=== PATIENT | female | born 1945 | race Caucasian/White ===

== ENCOUNTER → 2017-03-27 | Outpatient (CLI) | payer MEDICARE ==
--- NOTE | 2017-03-27 15:47 | KCIC ---
DATE: 03/27/2017 EXAM: MAMMO REAL SCREENING BILATERAL HISTORY: Routine screening. History of benign left breast biopsy. COMPARISON: Previous study from 2016 and 2015. This study was interpreted with the benefit of Computerized Aided Detection (CAD). FINDINGS: Breast Density: HETERO The breast parenchyma Is heterogeneously dense, which could reduce sensitivity of mammography. Breast parenchyma level C. The skin and nipples are within normal limits. Benign bilateral scattered calcifications. There is a new focus of calcification in the right outer breast approximately at 9:00 position with branching morphology approximately 7 cm from nipple on cc view. There is a 1.4 x 1.4 cm round well-circumscribed mass in the left retroareolar region. Left breast biopsy clip noted. IMPRESSION: New right breast calcifications and left retroareolar round lesion. The right breast which effaces are most likely secretory calcifications which are benign. However, meditation views recommended for better evaluation morphology. The left retroareolar mass most likely simple cyst. However, confirmation recommended with ultrasound. BI-RADS CATEGORY: 0 INCOMPLETE: NEED ADDITIONAL IMAGING EVAULATION AND/OR PRIOR MAMMOGRAMS FOR COMPARISON RECOMMENDED FOLLOW-UP: ADD ADDITIONAL IMAGING. Magnification views of the right breast calcifications and ultrasound of the left retroareolar region. . PQRS compliance statement: Patient information was entered into a reminder system with a target due date for the next mammogram. Mammography is a sensitive method for finding small breast cancers, but it does not detect them all and is not a substitute for careful clinical examination. A negative mammogram does not negate a clinically suspicious finding and should not result in delay in biopsying a clinically suspicious abnormality. "Our facility is accredited by the [employer] Mammography Program."
== END | disposition home or self-care (01) ==
LOC: KCIC MAMMO 12:09
PROVIDERS: ATTEND Internal Medicine
DX: Z12.31 Encounter for screening mammogram for malignant neoplasm of breast (principal)
CPT/HCPCS: 77063; G0202; 77067

== ENCOUNTER → 2017-03-28 | Outpatient (CLI) | payer MEDICARE ==
--- NOTE | 2017-03-28 15:49 | KCIC ---
Ultrasound left breast Indication: Abnormal left breast mammogram Technique: Grayscale and color Doppler ultrasound images of the left breast. Comparison: Screening mammogram from 03/27/2017 Findings: There is a 1.3 x 1.3 x 1.0 cm anechoic round well-circumscribed cystic lesion with posterior acoustic enhancement and no internal vascularity in the retroareolar region at 3:00 position that corresponds to the abnormality seen on the most recent screening mammogram from 03/27/2017. No other cystic or solid lesion seen in the interrogated left breast. Impression: The previously seen left breast retroareolar abnormality is consistent with simple cyst. BI-RADS 2: Benign finding.
--- NOTE | 2017-03-31 20:05 | KCIC ---
DATE: 03/28/2017 EXAM: DIGITAL DIAGNOSTIC RT HISTORY: Callback for abnormality seen in the right breast screening mammogram. COMPARISON: Screening mammogram from 03/27/2017. This study was interpreted with the benefit of Computerized Aided Detection (CAD ). CC and MLO Magnification views of the right upper outer breast. FINDINGS: Breast Density: HETERO The breast parenchyma Is heterogeneously dense, which could reduce sensitivity of mammography. Breast parenchyma level C. CC and MLO magnification views of the right posterior upper outer breast demonstrates a linear branching calcification pattern. There are benign scattered calcifications distributed throughout the breast. IMPRESSION: Linear branching pattern of calcification, new from previous study in the posterior upper outer breast. This is a suspicious finding. BI-RADS CATEGORY: 4 SUSPICIOUS ABNORMALITY-BIOPSY SHOULD BE CONSIDERED RECOMMENDED FOLLOW-UP: PQRS compliance statement: Patient information was entered into a reminder system with a target due date for the next mammogram. Mammography is a sensitive method for finding small breast cancers, but it does not detect them all and is not a substitute for careful clinical examination. A negative mammogram does not negate a clinically suspicious finding and should not result in delay in biopsying a clinically suspicious abnormality. "Our facility is accredited by the [employer] Mammography Program." MTDD
== END | disposition home or self-care (01) ==
LOC: KCIC MAMMO 14:13
PROVIDERS: ATTEND Internal Medicine
DX: R92.8 Other abnormal and inconclusive findings on diagnostic imaging of breast (principal)
CPT/HCPCS: 76641; G0206; 77065

== ENCOUNTER → 2017-04-03 | Outpatient (CLI) | payer MEDICARE ==
[~2017-04-03] MED LIST: LIDOCAINE 1% / SOD BICARB 8.4% 20 ML VIAL. IJ ONE; LIDOCAINE 2%/EPI 1:100,000 20 ML VIAL. IJ ONE
--- NOTE | 2017-04-08 17:25 | PATHOLOGY ---
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 See comment. (JPM:rlm; 04/05/2017) COMMENT: Sections of the right breast needle biopsy reveal several foci showing an atypical ductal epithelial proliferation. The atypical ductal epithelial proliferation has a papillary and focal cribriform architecture. The atypical cells appear somewhat uniform and possess enlarged, round to ovoid nuclei containing small nucleoli. There is necrotic debris within the ductal lumens. There are associated fine and coarse calcifications. The largest of these foci measure just under 3 mm in greatest dimension. There is no evidence of invasive carcinoma. A limited panel of immunoperoxidase stains is obtained and yields the following results: ER (A1) Atypical epithelial proliferation diffusely positive CK5/6 (A1) Atypical epithelial proliferation negative The morphologic and immunophenotypic findings are supportive of the diagnosis of atypical ductal hyperplasia bordering on low grade ductal carcinoma in situ. Recommend excision for further classification of the lesion. The case is also examined by Dr. Kellie Moulton and Dr. Neda Diaz, who concur with the diagnosis. (JPM:db; 04/08/2017) PROCEDURE REPORT (Order Date: 04/04/2017 11:23) COMMENT: Quantitative image analysis was performed on block A2. Please see next page for scanned image of results. (AMJ 04/08/2017) PATHOLOGIST: De Banda M.D. REPORT ELECTRONICALLY SIGNED BY: De Banda M.D. DATE/TIME: 04/09/2017 09:39 REPORT ELECTRONICALLY SIGNED BY: Artur Baird M.D. DATE/TIME: 04/08/2017 17:25 * * * * * * * * GROSS PATHOLOGY: Received in formalin labeled "Sue Hobson, right breast calcifications," are multiple needle cores of yellow-echeverria fibrofatty tissue measuring 4.1 x 2.0 x 0.9 cm in aggregate dimensions. The tissue is submitted in its entirety in cassette A1 through A3. The cold ischemic time is 8 minutes. The total formalin fixation time is 6 hours and 54 minutes. (TSD; 04/03/2017) INITIAL CPT CODE(S): A; 28153, 05679(2), 95816, 52773 Professional services [place] [address] Technical services performed by [facility] at [address] [place] [address], [address], [place] [address]. SPECIMEN(S) RECEIVED: A.Right breast biopsy CLINICAL HISTORY: Calcifications PATIENT: SUE HOBSON /AGE: 1103/13/1945 (Age: 72) PATIENT #: [id number] ALT CASE #: SPECIMEN COLLECTION DATE: 04/03/2017 SPECIMEN RECEIVED DATE: 04/03/2017 [facility] - [id number] [place] [address] - PHONE: [phone] * * * END OF REPORT * * *
--- NOTE | 2017-04-09 10:23 | RAD ---
Stereotactic right breast biopsy, 04/03/2017: History: Suspicious microcalcifications Previous right mammograms demonstrated a cluster of suspicious microcalcifications in the lateral aspect of the right breast. Under local anesthesia, aseptic conditions and mammographic guidance the [employer] biopsy instrument was passed into this region via a lateral approach. Multiple 9-gauge vacuum-assisted core samples were obtained. Specimen mammography demonstrated multiple targeted microcalcifications in the specimens. A biopsy marker was deposited at the biopsy site. The biopsy instrument was then removed and hemostasis obtained. Two-view postprocedural digital mammograms were then obtained on a separate mammographic unit for documentation of the biopsy clip location. The majority of the targeted microcalcifications have been removed. The patient tolerated the procedure well and left the department in good condition. 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 Excisional biopsy is recommended. This is a concordant finding. Note: The findings were called to personnel in Dr. Oconnor's office at 10:19 AM on 04/09/2017.
== END | disposition home or self-care (01) ==
LOC: MAMMO 08:52
PROVIDERS: ATTEND Internal Medicine
DX: R92.8 Other abnormal and inconclusive findings on diagnostic imaging of breast (principal)
CPT/HCPCS: 19085; 77022; C1713; G0206; J3490; 77065

== ENCOUNTER 2017-05-01 09:24 | Day surgery (SDC) | payer MEDICARE ==
[2017-05-01] MEDS: LIDOCAINE WITH 8.4% SOD BICARB 3 ML DISP.SYRIN. IJ (07:30)
[~2017-05-01 09:24] MED LIST changes: +HYDROmorphone 2 MG/ML VIAL IV; +IV RINGERS,LACTATED 1000ML 1,000 ML IV; -LIDOCAINE 1% / SOD BICARB 8.4% 20 ML VIAL. IJ ONE; +LIDOCAINE 1% PF 2 ML VIAL. ID; -LIDOCAINE 2%/EPI 1:100,000 20 ML VIAL. IJ ONE; +MORPHINE SULFATE 2 MG/ML DISP.SYRIN. IV; +ONDANSETRON PF 4 MG/2 ML VIAL. IV; +PROCHLORPERAZINE 10 MG/2 ML VIAL. IV; +ceFAZolin 2GM PREMIX 2 GM/50 ML BAG IV; +fentaNYL PF VIAL 100 MCG/2 ML VIAL IV
[2017-05-01] MEDS ORDERED: LIDOCAINE 2% PF Vial for OR 5 ML VIAL. (10:17)
[2017-05-01] MEDS ORDERED: PROPOFOL 20 ML IV (10:17)
[2017-05-01] MEDS: BUPIVAC MPF-EPI 0.5%-1:200000 30 ML VIAL. INJ (12:15)
[2017-05-01] MEDS ORDERED: DEXAMETHASONE SOD PHOS 20 MG/5 ML VIAL. (12:21)
[2017-05-01] MEDS ORDERED: fentaNYL PF VIAL 100 MCG/2 ML VIAL (12:21)
[2017-05-01] MEDS ORDERED: ONDANSETRON PF 4 MG/2 ML VIAL. (12:21)
[2017-05-01] MEDS ORDERED: SEVOFLURANE 31 TO 60 MINUTES. IH (12:32)
[2017-05-01] MEDS: fentaNYL PF VIAL 100 MCG/2 ML VIAL IV (13:17)
[2017-05-01] MEDS ORDERED: HYDROcodone/APAP 5/325MG 1 TAB TABLET (13:27)
[2017-05-01] MEDS: HYDROcodone/APAP 5/325MG 1 TAB TABLET PO (13:29)
== END 2017-05-01 14:19 | disposition home or self-care (01) ==
LOC: SURG 09:24
DX: N60.91 Unspecified benign mammary dysplasia of right breast (principal); Z86.69 Personal history of other diseases of the nervous system and sense organs; Z87.39 Personal history of other diseases of the musculoskeletal system and connective tissue; Z72.89 Other problems related to lifestyle; Z88.8 Allergy status to other drugs, medicaments and biological substances; Z91.048 Other nonmedicinal substance allergy status
CPT/HCPCS: 19081; 19281; 76098; 88307; C1769; J0690; J1100; J2405; J2704; J3010; J3490

== ENCOUNTER → 2017-11-01 | Outpatient (CLI) | payer MEDICARE | END | disposition home or self-care (01) | LOC: KCIC MAMMO 08:43 | DX: R92.8 Other abnormal and inconclusive findings on diagnostic imaging of breast (principal) | CPT/HCPCS: 77065 ==

== ENCOUNTER → 2018-03-24 | Outpatient (CLI) | payer MEDICARE ==
[2017-05-01 13:55] VITALS: BP 130/76
[~2018-03-24] MED LIST changes: +ASPI81TA50 PO; +CALC600T4 PO; +CHOL100013 PO; +ESTR0.5T PO; +FISH1CAP PO; +HYDR-2761 PO; -HYDROmorphone 2 MG/ML VIAL IV; -IV RINGERS,LACTATED 1000ML 1,000 ML IV; -LIDOCAINE 1% PF 2 ML VIAL. ID; +MAGN400C PO; -MORPHINE SULFATE 2 MG/ML DISP.SYRIN. IV; -ONDANSETRON PF 4 MG/2 ML VIAL. IV; -PROCHLORPERAZINE 10 MG/2 ML VIAL. IV; +SPIR25TA5 PO; -ceFAZolin 2GM PREMIX 2 GM/50 ML BAG IV; -fentaNYL PF VIAL 100 MCG/2 ML VIAL IV
--- NOTE | 2018-03-24 13:26 | KCIC ---
DATE: 03/24/2018 EXAM: MAMMO REAL TIMOTHYG DANIELAT HISTORY: Follow-up benign biopsy COMPARISON: 11/01/2017, 03/18/2016 This study was interpreted with the benefit of Computerized Aided Detection (CAD). Breast Density: HETERO The breast parenchyma is heterogenously dense, which could reduce sensitivity of mammography. Breast parenchyma level C. FINDINGS: 2-D and 3-D tomosynthesis imaging was performed in CC and MLO projections. There is an old biopsy clip in the lateral left breast. No new or enlarging breast densities are seen. There is slight architectural distortion laterally in the right breast on a postsurgical basis. Numerous microcalcifications are again noted in both breasts. No suspicious microcalcifications have developed. IMPRESSION: Stable mammograms without evidence of malignancy. Correlation with the excisional biopsy results is suggested in determining the best timing for mammographic surveillance. BI-RADS CATEGORY: 2 BENIGN FINDING(S) RECOMMENDED FOLLOW-UP: 12M 12 MONTH FOLLOW-UP PQRS compliance statement: Patient information was entered into a reminder system with a target due date for the next mammogram. Mammography is a sensitive method for finding small breast cancers, but it does not detect them all and is not a substitute for careful clinical examination. A negative mammogram does not negate a clinically suspicious finding and should not result in delay in biopsying a clinically suspicious abnormality. "Our facility is accredited by the [employer] Mammography Program."
== END | disposition home or self-care (01) ==
LOC: KCIC MAMMO 12:19
PROVIDERS: ATTEND Surgery
DX: R92.8 Other abnormal and inconclusive findings on diagnostic imaging of breast (principal)
CPT/HCPCS: 77066; G0279; 77062

== ENCOUNTER → 2019-03-25 | Outpatient (CLI) | payer MEDICARE ==
[2017-05-01 13:55] VITALS: BP 130/76
--- NOTE | 2019-03-25 13:14 | KCIC ---
EXAM: Bilateral digital screening mammogram with tomosynthesis. HISTORY: 74-year-old female presents for screening mammography. TECHNIQUE: Full-field digital craniocaudal and mediolateral oblique 2D and 3D tomosynthesis images of both breasts are obtained for evaluation. Computer aided detection with AteoD software version 9.3 was applied. COMPARISON: 11/01/2017 and 04/03/2017 BREAST PARENCHYMAL DENSITY: Level C - Heterogeneously dense. FINDINGS: There is no new suspicious mass, microcalcification or region of architectural distortion. There are extensive benign-appearing microcalcifications throughout the right greater than left breast. There are stable postoperative changes within the right breast. There is a biopsy clip within the left breast. IMPRESSION: BI-RADS Category 2: Benign finding(s). RECOMMENDATION: Annual mammography is recommended. If your mammogram demonstrates that you have dense breast tissue, which could hide abnormalities, and if you have other risk factors for breast cancer that have been identified, you might benefit from supplemental screening tests that may be suggested by your ordering physician. Dense breast tissue, in and of itself, is a relatively common condition. This information is not provided to cause undue concern, but rather to raise your awareness and to promote discussion with your physician regarding the presence of other risk factors, in addition to dense breast tissue. A report of your mammography results will be sent to you and your physician. You should contact your physician if you have any questions or concerns regarding this report. Mammography is a sensitive method for finding small breast cancers, but it does not detect them all and is not a substitute for careful clinical examination. A negative mammogram does not negate a clinically suspicious finding and should not result in delay in biopsying a clinically suspicious abnormality. PQRS compliance statement - Patient information was entered into a reminder system with a target due date for the next mammogram. "Our facility is accredited by the [employer] Mammography Program." Electronically signed by: Laquita Vizcarra MD (03/25/2019 1:11 PM) [id number]
== END | disposition home or self-care (01) ==
LOC: KCIC MAMMO 12:12
PROVIDERS: ATTEND Family Medicine
DX: Z12.31 Encounter for screening mammogram for malignant neoplasm of breast (principal)
CPT/HCPCS: 77063; 77067

== ENCOUNTER → 2019-07-06 | Outpatient (CLI) | payer BC, MEDICARE ==
[2017-05-01 13:55] VITALS: BP 130/76
--- NOTE | 2019-07-06 16:27 | KCIC ---
EXAM: Dual energy x-ray absorptiometry (DEXA). HISTORY: Postmenopausal female presents for osteoporosis screening. COMPARISON: None. TECHNIQUE: Dual energy x-ray absorptiometry of the lumbar spine and left hip was performed. Calculation of bone mineral density based on standard deviations above or below the expected young adult normal value (T-score) was completed. FINDINGS: The average bone mineral density in the 1st through 4th lumbar vertebrae is 1.270 g/cmxcm, corresponding with a T-score of 2.0. The average total bone mineral density in the left hip is 0.779 g/cmxcm, corresponding with a T-score of -1.3. IMPRESSION: 1. Osteopenia measured at the left hip. 2. Normal bone mineral density measured at the lumbar spine. Note: Definitions established by the World Health Organization: 1. Normal: T-score is -1.0 or above. 2. Osteopenia: T-score is between -1.0 and -2.5 . 3. Osteoporosis: T-score is -2.5 or below. Electronically signed by: Laquita Vizcarra MD (07/06/2019 4:24 PM) [id number]
== END ==
LOC: KCIC DEXA 11:22
PROVIDERS: ATTEND Family Medicine
DX: M85.88 Other specified disorders of bone density and structure, other site (principal); N95.9 Unspecified menopausal and perimenopausal disorder
CPT/HCPCS: 77080

== ENCOUNTER → 2020-03-29 | Outpatient (CLI) | payer BC ==
[2017-05-01 13:55] VITALS: BP 130/76
[~2020-03-29] MED LIST changes: -CALC600T4 PO; +CALC600T6 PO
--- NOTE | 2020-03-29 16:21 | KCIC ---
Bilateral digital screening mammograms: Reason for examination: Routine screening. Comparison is made to previous studies dated back to 03/10/2015. Interpretation was made with the benefit of CAD. The skin and nipples show no abnormalities. No abnormal axillary lymph nodes are seen. The breast parenchyma is heterogeneously dense. (Breast density: Category C) There appears to be some nodular density with architectural distortion and clustered calcifications anteriorly in the upper outer quadrant of the right breast at the 10:00 position. Further evaluation with coned magnification views and ultrasound is recommended. There continue to be some scattered benign calcifications seen bilaterally. Biopsy clip remains present on the left. Impression: Nodular density with some architectural distortion and adjacent clustered microcalcifications anteriorly in the upper outer quadrant of the right breast at the 10:00 position. Recommend further evaluation with coned compression magnification views and right breast ultrasound. Your patient's mammogram demonstrates that she has dense breast tissue (breast density category C or D), which could hide abnormalities, and if she has other risk factors for breast cancer that have been identified, she might benefit from supplemental screening tests that may be suggested by you as her ordering physician. Dense breast tissue, in and of itself, is a relatively common condition. Therefore, this information is not provided to cause undue concern, but rather to raise your awareness and to promote discussion with your patient regarding the presence of other risk factors, in addition to dense breast tissue. Your patient's mammography results will be sent to her. BI-RADS Category 0: Incomplete. Needs additional imaging evaluation. "Our facility is accredited by the [employer] Mammography Program." This patient's information has been entered into a reminder system for the patient to be notified with the results of her examination and a target date for the next mammogram. Electronically signed by: Deepa Greene MD (03/29/2020 4:18 PM) [id number]
== END ==
LOC: KCIC MAMMO 14:51
PROVIDERS: ATTEND Family Medicine
DX: Z12.31 Encounter for screening mammogram for malignant neoplasm of breast (principal); N64.89 Other specified disorders of breast
CPT/HCPCS: 77063; 77067

== ENCOUNTER → 2020-04-26 | Outpatient (CLI) | payer BC ==
[2017-05-01 13:55] VITALS: BP 130/76
--- NOTE | 2020-04-26 14:36 | RAD ---
Examination: 1. Right digital diagnostic mammogram. INDICATION: Screening recall for upper outer right breast nodular density with architectural distorti on and clustered microcalcifications. COMPARISON: Right mammograms of 04/03/2017, 11/01/2017, 03/24/2018, 03/25/2019 and 03/29/2020. Right cas st post needle localization mammogram and surgical excisional specimen of 05/01/2017. TECHNIQUE: Magnification views of the right breast in the CC and ML views were obtained. The patholog y results from the excisional biopsy of 05/01/2017 was also reviewed FINDINGS: Heterogeneously dense breast parenchyma. Architectural distortion in the anterior lateral right breast is confirmed on additional mammographic views along with residual coarse heterogeneous calcifications. cardiopulmonary technologist reports the patient's surgical incisional scar is visible at the skin surfac e over the area of distortion. No palpable abnormalities were observed. The path report from this exc ision biopsy showed atypical ductal hyperplasia (with negative margins) as well as sclerosing adenosi s, fibroadenomatous change and proliferative fibrocystic changes. On additional reflection, the distortion from surgical excision and the calcifications in the lateral right breast would likely be visible on ultrasound as potentially false-positive sonographic finding s. Therefore, in lieu of targeted lateral right breast ultrasound at this visit, continued mammographic screening is recommended along with clinical surveillance. IMPRESSION: Benign post surgical change in the lateral right breast anteriorly and laterally with pathologic find ings compatible with previously diagnosed benign etiologies including fibrocystic change, apocrine me taplasia, sclerosing adenosis and negative margined atypical ductal hyperplasia. BI-RADS Category 2 Benign findings Recommend return to routine screening and clinical management. It may be helpful to establish a basel ine clinical exam with a breast surgeon to assist with clinical surveillance. If there are any clinic ally suspicious findings on physical exam, this area should be considered for biopsy, including poten tiajan excisional biopsy. In the absence of any clinically suspicious finding, routine mammographic s creening is recommended. Electronically signed by: Cleve Langston MD (04/26/2020 2:34 PM) [id number]
== END ==
LOC: MAMMO 10:26
PROVIDERS: ATTEND Family Medicine
DX: R92.8 Other abnormal and inconclusive findings on diagnostic imaging of breast (principal)
CPT/HCPCS: 77065

== ENCOUNTER → 2021-05-01 | Outpatient (CLI) | payer BC ==
[2017-05-01 13:55] VITALS: BP 130/76
[~2021-05-01] MED LIST changes: -CALC600T6 PO; +CALC600T60 PO
--- NOTE | 2021-05-01 12:14 | KCIC ---
Bilateral digital screening mammograms with 3-D tomosynthesis: Reason for examination: Routine screening. Comparison is made to previous studies dated back to 03/26/2016. Bilateral mammograms in CC and oblique projections were obtained with 2-D imaging and 3-D tomosynthes is imaging on a Siemens Inspiration unit and reviewed on the workstation. Interpretation was made wit h the benefit of CAD. The skin and nipples show no abnormalities. No abnormal axillary lymph nodes are seen. The breast par enchyma is heterogeneously dense. (Breast density: Category C.) There is an enlarging mass at the 10: 00 position of the right breast with architectural distortion. There is also increase in calcificatio n anterior to the mass. Malignancy cannot be excluded and further evaluation with ultrasound is recom mended. There continues to be some nodularity medially at approximately the 3:00 B position of the ri ght breast which is stable. There are no other new dominant masses, suspicious calcifications or arch itectural distortion. Benign calcifications are present. Impression: Enlarging mass with architectural distortion at the 10:00 B position of the right breast approximatel y 4 cm from the nipple. Increasing calcifications anterior to the mass at the 10:00 position. Recomme nd further evaluation with ultrasound. Your patient's mammogram demonstrates that she has dense breast tissue (breast density category C or D), which could hide abnormalities, and if she has other risk factors for breast cancer that have bee n identified, she might benefit from supplemental screening tests that may be suggested by you as her ordering physician. Dense breast tissue, in and of itself, is a relatively common condition. Therefo re, this information is not provided to cause undue concern, but rather to raise your awareness and t o promote discussion with your patient regarding the presence of other risk factors, in addition to d ense breast tissue. Your patient's mammography results will be sent to her. BI-RAD Category 0: Incomplete. Needs additional imaging evaluation. "Our facility is accredited by the [employer] Mammography Program." This patient's information has been entered into a reminder system for the patient to be notified wit h the results of her examination and a target date for the next mammogram. Electronically signed by: Deepa Greene MD (05/01/2021 12:11 PM) [facility]
== END ==
LOC: KCIC MAMMO 10:55
PROVIDERS: ATTEND Family Medicine
DX: Z12.31 Encounter for screening mammogram for malignant neoplasm of breast (principal)
CPT/HCPCS: 77063; 77067

== ENCOUNTER → 2021-05-10 | Outpatient (CLI) | payer BC ==
[2017-05-01 13:55] VITALS: BP 130/76
--- NOTE | 2021-05-10 15:37 | KCIC ---
Right breast ultrasound: Reason for examination: Architectural distortion on screening mammogram. Comparison is made to mammographic exam dated 05/01/2021. Ultrasound examination of the right breast and axilla was performed. At the 10:00 position 2.5 cm from the nipple, there is a spiculated 1.9 cm mass which corresponds to the area of mammographic concern. Malignancy is suspected. No grossly abnormal appearing lymph nodes are seen in the axilla. IMPRESSION: 1.9 cm spiculated mass at the 10:00 position which is highly suspicious for malignancy. Recommend ult rasound-guided biopsy. BI-RADS Category 5: Highly suggestive of malignancy. These findings have been discussed with the patient and the patient's physician office of Dr. Eusebia bolaños was notified about these findings via the available voicemail messaging on 05/10/2021 at 1534. "Our facility is accredited by the [employer] Mammography [employer]." Electronically signed by: Deepa Greene MD (05/10/2021 3:35 PM) [id number]
== END ==
LOC: KCIC US 12:53
PROVIDERS: ATTEND Family Medicine
DX: N63.11 Unspecified lump in the right breast, upper outer quadrant (principal)
CPT/HCPCS: 76641